=== PATIENT | female | born 1990 | race Caucasian/White ===

== ENCOUNTER 2016-11-05 23:44 | Emergency (ER) | payer MEDICAID ==
[~2016-11-05] VITALS: Ht 167.6 cm; Wt 58.0 kg
[~2016-11-05 23:44] MED LIST: CYCL-36 PO; KLON2TAB PO; LEVE500 PO; OXYC15TA PO; ZOFR4TAB3 SL
[2016-11-05 23:45] VITALS: BP 122/64; PULSE 96; RESP 18; TEMP 98; O2SAT 98
[2016-11-06] MEDS ORDERED: SODIUM CHLOR 0.9% 1000 ML INJ 1,000 ML IV ONE (02:08)
[2016-11-06] MEDS ORDERED: PROCHLORPERAZINE INJ 10 MG/2 ML VIAL IVP ONE (02:15)
[2016-11-06] MEDS ORDERED: SODIUM CHLORIDE 0.9% FLUSH 10 ML FLUSH IVF PRN (02:15)
[2016-11-06] MEDS ORDERED: diphenhydrAMINE HCL 50 MG/ML VIAL IVP ONE (02:15)
[2016-11-06] MEDS ORDERED: ONDANSETRON HCL 4 MG/2 ML VIAL IVP ONE (02:15)
[2016-11-06 02:40] LABS: AUTOMATED NEUTROPHIL # 7.2 TH/MM3 (1.8-7.7); BASOPHIL # 0.1 TH/MM3 (0-0.2); BASOPHIL % 0.6 % (0.0-2.0); EOSINOPHIL # 0.6 TH/MM3 (0-0.4); EOSINOPHIL % 5.5 % (0.0-4.0); HEMATOCRIT 38.8 % (35.0-46.0); HEMO FLAGS DIFF FINAL; LYMPH % 26.4 % (9.0-44.0); MEAN CELL VOLUME 89.3 FL (80.0-100.0); MEAN CORPUSCULAR HEMOGLOBIN 30.4 PG (27.0-34.0); MONO % 4.4 % (0.0-8.0); NEUT % 63.1 % (16.0-70.0); PLATELET COUNT 312 TH/MM3 (150-450); RED BLOOD COUNT 4.35 MIL/MM3 (4.00-5.30); RED CELL DISTRIBUTION WIDTH 13.9 % (11.6-17.2); WHITE BLOOD COUNT 11.5 TH/MM3 (4.0-11.0)
[2016-11-06 03:22] LABS: POTASSIUM 3.9 MEQ/L (3.5-5.1)
--- NOTE | 2016-11-18 05:20 | PD ---
HPI Chief Complaint: Headache Time Seen by Provider: 02:08 Travel History International Travel<30 days: No Contact w/Intl Traveler<30days: No Traveled to known affect area: No History of Present Illness HPI 25-year-old female presents to the emergency department for multiple complaints including nausea vomiting headache 8 days and blood in her ears 2 days. No report of injury or trauma. No report of fever or chills. Patient has multiple medical conditions including anemia asthma lupus anxiety migraines seizure kidney stones and scoliosis. Patient rates pain 9/10 in intensity. Patient is unable to identify exacerbating or alleviating factors. Patient does not report symptoms typical of her migraines. No report of hematemesis coffee-ground emesis or bilious emesis. No report of altered mentation change in speech upper or lower extremity numbness tingling or weakness or ataxia of gait. PFSH Past Medical History Narrative Medical Anemia asthma lupus anxiety migraines kidney stents scoliosis seizure Ab3 D&C 3 renal stent tobacco use nursing notes reviewed Anemia: Yes Arthritis: No Asthma: Yes Autoimmune Disease: Yes (LUPUS) Blood Disorders: No Anxiety: Yes Depression: Yes Heart Rhythm Problems: No Cancer: No Cardiovascular Problems: No High Cholesterol: No Chemotherapy: No Chest Pain: No Congestive Heart Failure: No COPD: No Cerebrovascular Accident: No Diabetes: No Diminished Hearing: No Endocrine: No Gastrointestinal Disorders: Yes (ADMITTED 06/16/15 WITH ABD PAIN AND NAUSEA) GERD: No Glaucoma: No Genitourinary: No Headaches: Yes Hepatitis: No Hiatal Hernia: No Hypertension: No Immune Disorder: Yes (lupus) Implanted Vascular Access Dvce: No Kidney Stones: Yes Musculoskeletal: Yes (SCOLIOSIS) Neurologic: Yes (MIGRAINES/SEIZURES) Psychiatric: Yes Reproductive: Yes (2 MISCARRAGES AND A C SECTION, MISSED AB 06/29/15) Respiratory: Yes (ASTHMA) Immunizations Current: Yes Migraines: Yes Myocardial Infarction: No Radiation Therapy: No Renal Failure: No Seizures: Yes Sickle Cell Disease: No Sleep Apnea: No Thyroid Disease: No Ulcer: Yes Tetanus Vaccination: > 5 Years Influenza Vaccination: No ?: Unknown LMP: 09/30/16 Menopausal: No : 4 Para: 1 Miscarriage: 3 : 0 Ovarian Cysts: Yes (SURGERIES X11) Dilation and Curettage (D&C): Yes (X3) Past Surgical History Abdominal Surgery: No AICD: No Appendectomy: No Arteriovenous Shunt: No Cardiac Surgery: No Section: Yes (X1) Cholecystectomy: No Ear Surgery: No Endocrine Surgery: No Eye Surgery: No Genitourinary Surgery: Yes (CYSTO DR CHAVEZ, RENAL STENT 2013) Gynecologic Surgery: Yes (Ovarian cyst removal, C section 2013, d and c on last tuesday ) Insulin Pump: No Joint Replacement: No Oral Surgery: Yes (WISDOM) Pacemaker: No Thoracic Surgery: No Other Surgery: Yes (LAP OVARIA CYST) Social History Alcohol Use: No Tobacco Use: Yes (5 CIGS PER DAY) Substance Use: No Allergies-Medications (Allergen,Severity, Reaction): Coded Allergies: Lortab (Verified Allergy, Severe, RASH, 11/06/16) Toradol (Verified Allergy, Severe, RASH, 11/06/16) Ultram (Verified Allergy, Intermediate, VOMITING, 11/06/16) Etomidate (Verified Allergy, Mild, Nausea/Vomiting, 11/06/16) Keppra (Verified Allergy, Unknown, suicidal thoughts, 11/06/16) Biaxin (Verified Adverse Reaction, Severe, VOMITING, 11/06/16) Reported Meds & Prescriptions Reported Meds & Active Scripts Active Zofran ODT (Ondansetron HCl) 4 Mg Tab 4 Mg SL Q6H PRN FOR NAUSEA/VOMITING Flexeril (Cyclobenzaprine HCl) 10 Mg Tab 10 Mg PO TID PRN Keppra (Levetriacetam) 500 Mg Tab 500 Mg PO BID Reported Oxycodone (Oxycodone HCl) 15 Mg Tab 15 Mg PO Q4H PRN Klonopin (Clonazepam) 2 Mg Tab 2 Mg PO HS Review of Systems Except as stated in HPI: all other systems reviewed are Neg Physical Exam Narrative GENERAL: Well-developed well-nourished female in no acute distress; GCS 15 SKIN: Warm and dry. HEAD: Atraumatic. Normocephalic. EYES: Pupils equal and round. No scleral icterus. No injection or drainage. ENT: No nasal bleeding or discharge. Mucous membranes pink and moist. NECK: Trachea midline. No JVD. CARDIOVASCULAR: Regular rate and rhythm. RESPIRATORY: No accessory muscle use. Clear to auscultation. Breath sounds equal bilaterally. GASTROINTESTINAL: Abdomen soft, non-tender, nondistended. Hepatic and splenic margins not palpable. MUSCULOSKELETAL: Extremities without clubbing, cyanosis, or edema. No obvious deformities. NEUROLOGICAL: Awake and alert. No obvious cranial nerve deficits. Motor grossly within normal limits. Five out of 5 muscle strength in the arms and legs. Normal speech. PSYCHIATRIC: Appropriate mood and affect; insight and judgment normal. Data Data Orders Complete Blood Count With Diff (11/06/16 02:08) Basic Metabolic Panel (Bmp) (11/06/16 02:08) Ecg Monitoring (11/06/16 02:08) Iv Access Insert/Monitor (11/06/16 02:08) Oximetry (11/06/16 02:08) Sodium Chloride 0.9% Flush (Ns Flush) (11/06/16 02:15) Ondansetron Inj (Zofran Inj) (11/06/16 02:15) Prochlorperazine Inj (Compazine Inj) (11/06/16 02:15) Diphenhydramine Inj (Benadryl Inj) (11/06/16 02:15) Sodium Chlor 0.9% 1000 Ml Inj (Ns 1000 M (11/06/16 02:08) Ed Urine Pregnancytest Poc (11/06/16 02:08) MDM Medical Decision Making Medical Screen Exam Complete: Yes Emergency Medical Condition: Yes Medical Record Reviewed: Yes Differential Diagnosis Cephalgia-migraine versus tension versus viral versus traumatic versus vascular , ear trauma, sinusitis, viral syndrome, dehydration, ICH, SAH, , UTI Narrative Course Patient with multiple complaints specimens collected and sent for resulting Patient administered Compazine and Benadryl as well as IV fluid bolus and Zofran Informed patient left AMA Diagnosis Primary Impression: Left against medical advice Patient Instructions: General Instructions Departure Forms: Tests/Procedures Disposition: AGAINST MEDICAL ADVICE Condition: Stable Thu Madrid MD Nov 18, 2016 05:20
== END 2016-11-06 03:19 | disposition left against medical advice (07) ==
LOC: NEPC 23:44
DX: R51 Headache (principal)
CPT/HCPCS: 80048; 84703; 85025; 96374; 96375; 99284; J0780; J1200; J2405; J7030